=== PATIENT | female | born 1960 | race Caucasian/White ===

== ENCOUNTER → 2023-12-08 12:54 | Outpatient (REF) | payer MEDICARE, SELFPAY | LOC: HWRAD 12:54 | PROVIDERS: ATTENDING PHYSICIAN Family Medicine; REFERRING PHYSICIAN Internal Medicine Endocrinology, Diabetes & Metabolism | DX: E04.1 Nontoxic single thyroid nodule (principal); Z12.31 Encounter for screening mammogram for malignant neoplasm of breast | CPT/HCPCS: 76536; 77063; 77067 ==

== ENCOUNTER → 2024-05-04 11:30 | Outpatient (REF) | payer MEDICARE, SELFPAY | LOC: HWRAD 11:30 | PROVIDERS: ATTENDING PHYSICIAN Internal Medicine Critical Care Medicine; FAMILY PHYSICIAN Family Medicine | DX: R06.09 Other forms of dyspnea (principal) | CPT/HCPCS: 71046 ==

== ENCOUNTER 2024-11-13 05:10 | Emergency (ER) | payer MEDICARE, SELFPAY ==
[2024-11-13] VITALS (11 sets, daily range): BP systolic 123–163; BP diastolic 67–126; BMI 54.5
[2024-11-13 06:13] LABS: Hematocrit 44.9 % (37.0-47.0); Hemoglobin 15.3 g/dL (12.0-16.0); Mean Corp Hgb Conc. 34.1 g/dL (33.0-37.0); Mean Corpuscular Volume 84.9 fL (81.0-99.0); Nucleated Red Blood Cells % 0 %; Platelet Count 273 10^3/uL (130-400); Red Cell Dist. Width 13.8 % (11.5-14.5)
[2024-11-13 06:25] LABS: AST (SGOT) 21 U/L (14-36); Albumin 4.3 g/dl (3.5-5.0); Alkaline Phosphatase 98 U/L (38-126); Blood Urea Nitrogen 10 mg/dl (7-17); Calcium 9.5 mg/dl (8.4-10.2); Carbon Dioxide 23 mmol/L (22-30); Chloride 106 mmol/L (98-107); Estimated Creatinine Clearance 106 ml/min; Glucose 134 mg/dl (70-99); Potassium 4.0 mmol/L (3.5-5.1); Sodium 138 mmol/L (135-145); Total Protein 7.6 g/dl (6.3-8.2); eGFR > 60.00
[2024-11-13 06:39] LABS: ALT (SGPT) < 30 U/L (0-35)
[2024-11-13] MEDS: NSS 1000 IV (06:48)
[2024-11-13] MEDS: TORADOL 30 MG IV (06:48)
[2024-11-13 10:42] LABS: Urine Character Slightly Cloudy (Clear)
[2024-11-13 10:52] LABS: Urine Squamous Cell >30 /LPF (Few)
[2024-11-13] MEDS: MONUROL 3 GM PO (12:49)
[2024-11-13] MEDS: TYLENOL 1000 MG PO (13:11)
--- NOTE | 2024-11-13 13:25 | ED.GENMED ---
History of Present Illness
General
Chief Complaint: Abdominal Symptoms
Source: patient
Time Seen by Provider: 11/13/24 06:08
History of Present Illness
History of Present Illness:
Note:
CHIEF COMPLAINT(S)
Severe headache and neck stiffness following pneumococcal vaccination.
HISTORY OF PRESENT ILLNESS
The patient is a 64-year-old female with a history of hypertension, hyperlipidemia, restless leg syndrome, and chronic pain requiring methadone for severe osteoarthritis and prior back injury. She presented with severe headache and neck stiffness
following a pneumococcal vaccine administered on Friday. The symptoms began on , with the headache progressively worsening and leading to awakening three times during the night due to its intensity. The headache is described as bilateral
temporal, severe, feeling like 'something was going through my head coming out the other side.' She also reports neck stiffness persisting from yesterday and diarrhea occurring early on the morning of the visit. She suspects these may be related to
the recent vaccination. There have been no fevers noted, and she feels no abdominal tenderness currently, though she experienced cramping earlier. No significant fever or focal neurological deficits are present, and the patient is scheduled for a
thyroid biopsy on the upcoming Friday.
CHRONIC MEDICAL CONDITIONS SIGNIFICANTLY AFFECTING CARE
- Hypertension
- Hyperlipidemia
- Restless leg syndrome
- Chronic pain with methadone management due to osteoarthritis and past back injury
PAST MEDICAL HISTORY
- Hypertension
- Hyperlipidemia
- Restless leg syndrome
- Endometriosis
- Prior negative left breast biopsy
PAST SURGICAL HISTORY
- Left breast biopsy
SOCIAL HISTORY
The patient is on methadone for chronic pain management related to severe osteoarthritis and a past back injury.
MEDICATIONS
Methadone for chronic pain management.
REVIEW OF SYSTEMS
- Neurological: Severe bilateral temporal headache, neck stiffness.
- Gastrointestinal: Diarrhea, prior cramping.
- Constitutional: No fever noted.
PHYSICAL EXAM
- General: Alert and oriented, no acute distress.
- Skin: Warm, dry, well-perfused.
- HEENT
Cranial nerves intact, oral mucosa moist.
- Cardiovascular: Regular rhythm, no murmurs, good peripheral perfusion.
- Respiratory: Clear auscultation, non-labored respirations.
- Gastrointestinal: Abdomen soft, non-distended, non-tender.
- Neurological: No focal motor deficits, speech normal, cranial nerves intact.
- Musculoskeletal: No edema.
PROBLEM LIST
- Acute: Severe headache, neck stiffness, and diarrhea post-vaccination.
- Chronic: Hypertension, hyperlipidemia, restless leg syndrome, chronic pain.
PLAN
- Administer intravenous fluids and medication for headache relief.
- Monitor symptom progression and reassess if conditions worsen or new symptoms such as fever develop.
- Consider possible viral etiology or uncommon vaccine side effect due to temporal relationship and symptom presentation.
DIFFERENTIAL DIAGNOSIS
The Differential Diagnosis includes, in no particular order and is not limited to:
- Adverse reaction to pneumococcal vaccine
- Tension headache
- Migraine
- Viral gastroenteritis
- Cervical muscle strain
- Meningitis (unlikely given lack of fever and normal white count)
- Influenza
- Sinusitis
- Cluster headache
- Giant cell arteritis
CARE-UPDATE
11/13/24 - 10:13
The patient reports feeling overall better, although the neck is still a little sore. Lab results, including electrolytes, kidney function, and liver function, are normal. A urine study is pending to confirm these findings. The patient is expected
to be discharged today, with instructions to stay hydrated and use Tylenol as needed for aches and pains. The condition is suspected to be viral or possibly related to the vaccine, both deemed self-limiting, requiring only supportive care. There is
no evidence of meningitis or any overwhelming infection.
CARE-UPDATE
11/13/24 - 12:23
Suspected UTI confirmed. Patient reevaluated and reports feeling well. Allergies reviewed; patient confirms significant reaction only to lisinopril, with tongue swelling and angioedema. Initiating trial of fosfomycin; plan to reassess effectiveness.
Disposition:
SUMMARY OF ENCOUNTER
The patient, a 64-year-old female, was seen in the emergency department due to a severe headache and neck stiffness, suspected as a reaction to a pneumococcal vaccine. Additionally, she had diarrhea. After reassessment, the patient reported feeling
much better, and appeared well. Based on her urinalysis, the patient was treated with a single dose of fosfomycin for a urinary tract infection. Her symptoms were suspected to be partially vaccine-related. There was no evidence of meningitis, as she
was not febrile and her neck was supple. Her gastrointestinal symptoms had resolved, and she was deemed safe for outpatient discharge.
DISPOSITION
Discharge
ASSESSMENT
Suspected adverse reaction to pneumococcal vaccine and confirmed urinary tract infection.
EMERGENCY TREATMENTS ADMINISTERED
One dose of fosfomycin for urinary tract infection.
REASSESSMENT
The patient was reassessed and reported feeling much better. Her general condition appeared greatly improved.
PLAN
The patient is advised to increase fluid intake to ensure proper hydration and follow up with her primary care provider.
INDEPENDENT REVIEW OF LABS AND INTERPRETATION OF TESTS
My independent review of urinalysis indicated a urinary tract infection, leading to the administration of fosfomycin.
PATIENT EDUCATION AND COUNSELING
The patient was advised that her symptoms might be related to a recent pneumococcal vaccine and educated on the importance of proper hydration.
FOLLOW-UP INSTRUCTIONS
The patient should follow up with her primary care provider.
MEDICATION RECONCILIATION
A dose of fosfomycin was administered for treating a urinary tract infection during the visit.
MEDICAL DECISION MAKING
-Number and Complexity of Problems Addressed:
Chronic conditions affecting care include hypertension, hyperlipidemia, restless leg syndrome, and chronic pain. Differential diagnosis considered included an adverse reaction to the pneumococcal vaccine, tension headache, migraine, viral
gastroenteritis, cervical muscle strain, meningitis (unlikely due to lack of fever and normal white count), influenza, sinusitis, cluster headache, and giant cell arteritis.
-Data:
Category 1:
The patients urinalysis was reviewed, revealing a urinary tract infection.
-Risk:
Prescription medication was prescribed with the administration of fosfomycin.
DIAGNOSIS
Adverse reaction to pneumococcal vaccine, suspected (T88.1)
Urinary tract infection (N39.0)
Past History
Past History
ED Past Medical History: GERD, HTN, Hypercholesterolemia and Other (Prior PE, history of RLS, deficits of face and scalp, anxiety, depression, esophageal blockage, endometriosis, osteoarthritis, diverticulitis chronic back pain)
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
Social History
Tobacco: Former smoker
Alcohol: Occasional
Drug: None
Personal:
Living: alone
Employment: Disabled
Family History
Family History: Hypertension and Early CAD
Phy Exam
Physical Exam
Physical Exam:
.
Course
Orders/Labs/Results
Orders:
Orders
11/13/24 06:00
CMP [Comprehensive Metabolic Panel] Urgent
Complete Blood Count/With Diff Urgent
11/13/24 06:42
0.9% Sodium Chloride 1000 ml [Nss] 1,000 ml IV BOLUS
Ketorolac [Toradol] 30 mg IV NOW STA
11/13/24 10:00
Urinalysis Reflex To Culture Urgent
Date Specimen was Collected: 11/13/24
Time Specimen was Collected: 09:58
Urine Microscopic Reflex Cult Urgent
Urine Culture Urgent
ALAN Source: U
Specimen Description:
Date Specimen was Collected: 11/13/24
Time Specimen was Collected: 09:58
11/13/24 12:21
Fosfomycin [Monurol] 3 gm PO ONCE ONE
11/13/24 13:08
Acetaminophen [Tylenol] 1,000 mg .ROUTE .STK-MED ONE
11/13/24 13:10
Acetaminophen [Tylenol] 1,000 mg PO NOW STA
Abnormal Lab Results
11/13/24 11/13/24
06:00 10:00
Absolute Lymphs (auto) 0.5 L 10^3/uL
(1.2-3.4)
Absolute Monos (auto) 0.7 H 10^3/uL
(0.1-0.6)
Neutrophils % 79.6 H %
(42.2-75.2)
Lymphocytes % 7.9 L %
(20.5-51.1)
Monocytes % 11.6 H %
(1.7-9.3)
Glucose 134 H mg/dl
(70-99)
Ur Occult Blood Reflex 1+ A
(Negative)
Urine Nitrite (Reflex) Positive A
(Negative)
Leukocyte Esterase Rfl 2+ A
(Negative)
Urine RBC 3-6 A /HPF
(0-2)
Urine WBC (Reflex) 11-15 A /HPF
(0-5)
Urine Bacteria (Reflex) Many A
(Negative)
Urine Albumin (Reflex) 1+ A
(Neg - Trace)
11/13/24 06:00
11/13/24 06:00
Vital Signs
Initial and Last Documented VS:
Initial Vital Signs
Temp Pulse Resp BP Pulse Ox
98.4 F 111 20 157/98 97
11/13/24 05:13 11/13/24 05:13 11/13/24 05:13 11/13/24 05:13 11/13/24 05:13
Last Documented Vital Signs
Temp Pulse Resp BP Pulse Ox
98.4 F 65 12 145/77 91
11/13/24 05:13 11/13/24 11:00 11/13/24 11:00 11/13/24 11:00 11/13/24 13:29
*Pulse Oximetry
SaO2: 97
Oxygen Mode of Delivery: Room air
Patient hypoxic: no (Checked by me at bedside)
*Critical Care Note
Total Time (30-74mins, 75-104mins- exclusive of procedures): Not Applicable
ED Attending Note
-
Portions of this chart may have been created with voice recognition software.� Occasional wrong word or��sound alike� substitutions may have occurred due to the inherent limitations of voice recognition software.
Discharge Plan
Departure
Patient Disposition: Home (Routine Discharge)
Date of Disposition: 11/13/24
Time of Disposition: 13:27
Patient with high blood pressure during this ER visit?: Yes
Discharge Problem:
Headache, Diarrhea, Acute UTI
Instructions: Urinary tract infections in adults, Headache in adults - ED discharge instructions, BLOOD PRESSURE
Prescriptions:
No Action
methadone 10 MG tablet
10 mg PO TID
atorvastatin 40 MG tablet
40 mg PO DAILY
amlodipine 5 MG tablet
5 mg PO DAILY
oxycodone 10 MG tablet
10 mg PO BID
Patient Comments:
took half tab this am
polyethylene glycol 3350 17 GRAMS powder in packet
17 grams PO DAILYPRN PRN (Reason: constipation)
ketotifen fumarate [Zaditor] 5 ML drops
1 drp BOTH EYES DAILYPRN PRN (Reason: ALLERGIES)
ropinirole 1 MG tablet
0.5 mg PO HSPRN PRN (Reason: restless leg)
Patient Comments:
0.5MG HS X 2 MORE NIGHTS. THEN 1MG HS X 7 NIGHTS; THEN 2MG X 7 NIGHTS, THEN 3MG X 7 NIGHTS, THEN 4MG THEREAFTER.
Eliquis 5 MG tablet
5 mg PO BID Qty: 60 0RF
cetirizine 10 MG tablet
10 mg PO DAILY
gentamicin 1 DROP drops
1 drp ophthalmic (eye) Q4HWA
ferrous sulfate [Iron (ferrous sulfate)] 325 MG tablet
325 mg PO DAILY
losartan 25 MG tablet
25 mg PO DAILY
Referrals:
Deng Amezquita MD [Family Provider, Family Practice]
Activity Restrictions/Additional Instructions:
Please see your doctor in the next 3 to 5 days for follow-up and reevaluation. Drink plenty of fluids. Return immediately for fevers, worsening symptoms, shortness of breath or any other concerns.
Interventions
Interventions:
*Risk Screen - Suicide Last Done: 11/13/24 05:13
*General Assessment Last Done: 11/13/24 05:49
*Neglect/Abuse Screening Last Done: 11/13/24 05:53
*ED- Fall Risk Assessment Last Done: 11/13/24 05:13
*ED COVID-19 Vaccine History Last Done: 11/13/24 05:49
AY-Gngbxx-Whiojqbdju Assessment Last Done: 11/13/24 05:50
Discharge Date and Time
Print Language: LAO
== END 2024-11-13 14:54 | disposition home or self-care (01) ==
LOC: EMR 05:10
PROVIDERS: Emergency Medicine; EMERGENCY PHYSICIAN Emergency Medicine; FAMILY PHYSICIAN Family Medicine
DX: R19.7 Diarrhea, unspecified (principal); R51.9 Headache, unspecified; N39.0 Urinary tract infection, site not specified; M43.6 Torticollis; I10 Essential (primary) hypertension; M19.90 Unspecified osteoarthritis, unspecified site; G25.81 Restless legs syndrome; E78.00 Pure hypercholesterolemia, unspecified; K21.9 Gastro-esophageal reflux disease without esophagitis; G89.29 Other chronic pain; F41.9 Anxiety disorder, unspecified; F32.A Depression, unspecified; K57.92 Diverticulitis of intestine, part unspecified, without perforation or abscess without bleeding; Z79.891 Long term (current) use of opiate analgesic; Z79.01 Long term (current) use of anticoagulants; Z86.711 Personal history of pulmonary embolism; Z87.891 Personal history of nicotine dependence; Z88.1 Allergy status to other antibiotic agents; Z88.2 Allergy status to sulfonamides; Z88.8 Allergy status to other drugs, medicaments and biological substances; Z91.048 Other nonmedicinal substance allergy status
CPT/HCPCS: 99284; 96374; 96361; 80053; 81003; 81015; 85025; 87086

== ENCOUNTER 2025-01-21 17:30 | Emergency (ER) | payer MEDICARE, SELFPAY ==
[2025-01-21 17:32] VITALS: BP 150/68
[2025-01-21 17:56] LABS: Hematocrit 45.5 % (37.0-47.0); Hemoglobin 14.9 g/dL (12.0-16.0); Mean Corp Hgb Conc. 32.7 g/dL (33.0-37.0); Mean Corpuscular Volume 88.5 fL (81.0-99.0); Nucleated Red Blood Cells % 0 %; Platelet Count 309 10^3/uL (130-400); Red Cell Dist. Width 13.7 % (11.5-14.5)
[2025-01-21 18:24] LABS: ALT (SGPT) 16 U/L (0-35); AST (SGOT) 19 U/L (14-36); Albumin 4.3 g/dl (3.5-5.0); Alkaline Phosphatase 104 U/L (38-126); Blood Urea Nitrogen 13 mg/dl (7-17); Calcium 10.3 mg/dl (8.4-10.2); Carbon Dioxide 29 mmol/L (22-30); Chloride 102 mmol/L (98-107); Glucose 127 mg/dl (70-99); Lipase 79 U/L (23-300); Potassium 4.2 mmol/L (3.5-5.1); Sodium 139 mmol/L (135-145); Total Protein 7.4 g/dl (6.3-8.2); eGFR > 60.00
[2025-01-21 19:11] VITALS: BP 134/73
[2025-01-21 19:19] LABS: Urine Character Cloudy (Clear)
[2025-01-21 19:32] LABS: Urine Red Blood Cell 16-20 /HPF (0-2); Urine Squamous Cell 0-2 /LPF (Few); Urine White Cell 21-25 /HPF (0-5)
[2025-01-21 21:34] VITALS: BP 121/66
[2025-01-21 22:00] VITALS: BP 115/62
--- NOTE | 2025-01-21 22:15 | ED.GENMED ---
Addendum entered and electronically signed by Alfonso Topete Jr., PA-C 01/24/25 09:13:
The patient was contacted and will be started on antibiotics. She does have a listed allergy to Keflex but claims this only caused a slight stomachache and did not cause any symptoms consistent with significant allergic reaction. She was advised
to take the medication with something in her stomach to help with the side effect.
Original Note:
History of Present Illness
General
Chief Complaint: Abdominal Pain
Source: patient
Time Seen by Provider: 01/21/25 19:03
History of Present Illness
History of Present Illness:
Note:
CHIEF COMPLAINT(S)
Severe lower abdominal pain and vomiting.
HISTORY OF PRESENT ILLNESS
The patient is a 64-year-old female who presents with severe pain located in the lower abdomen near the groin and vomiting. The symptoms began suddenly approximately two hours before arrival to the emergency department and since resolved. The
patient reports that upon lying down after returning home, she experienced a stabbing pain followed by nausea and uncontrollable vomiting. The patient specifically notes, 'As soon as I laid down, I got this stabbing pain,' which lasted until the
ambulance arrived. The pain has resolved upon arrival to the hospital. A similar episode occurred one to two months ago, lasting approximately six to seven hours, but without vomiting. The patient has never had kidney stones before but suspects that
might be the cause of her symptoms. The pain did radiate towards her back. The patient did not drive herself due to the severity of the pain. The patient mentions not taking methadone, which she usually uses for back pain, earlier today due to a flu
shot and a urine test.
PAST MEDICAL AND SURGICAL HISTORY
The patient has a history of heavy lifting injury at work, resulting in a herniated disk and persistent back pain. She experiences numbness and weakness in the right hand, believed to be related to cervical spine issues; the pain management doctor
is planning a CT scan of the neck.
SOCIAL DETERMINANTS AFFECTING HEALTH
The patient describes functional limitations due to chronic pain, affecting mobility and daily activities.
MEDICATIONS
- Methadone (dosage not specified), typically used for managing chronic pain.
REVIEW OF SYSTEMS
- Gastrointestinal: Severe pain in the lower abdominal region, nausea, and vomiting.
- Musculoskeletal: Persistent back pain from a past injury, related numbness and weakness in the right hand.
- Neurological: Episodes of right hand numbness and weakness.
PHYSICAL EXAM
General: Alert, no acute distress.
Skin: Warm, dry.
Head: Normocephalic, atraumatic.
Neck: Supple, trachea midline.
Eye, Ears, Nose, Mouth, and Throat: Oral mucosa moist.
Cardiovascular: Normal peripheral perfusion, No edema.
Respiratory: Respirations are non-labored.
Gastrointestinal: Abdomen non-distended, normal bowel sounds; No tenderness noted.
Back: Normal range of motion, Normal alignment.
Musculoskeletal: Normal range of motion, normal strength.
Neurological: Alert and oriented to person, place, time, and situation; No focal neurological deficit observed.
Psychiatric: Cooperative, appropriate mood & affect.
PROBLEM LIST
- Acute: Lower abdominal pain, unexplained vomiting.
- Chronic: Back pain due to herniated disk, cervical spine-related hand numbness and weakness.
PLAN
- Obtain abdominal imaging to evaluate for kidney stones or other abnormalities.
- Conduct urine analysis.
- Review previous imaging if available.
DIFFERENTIAL DIAGNOSIS
The Differential Diagnosis includes, in no particular order and is not limited to:
1. Kidney stones
2. Urinary tract infection
3. Gastroenteritis
4. Ovarian pathology (e.g., cyst, torsion)
5. Diverticulitis
6. Appendicitis
7. Biliary colic
8. Pancreatitis
9. Abdominal aortic aneurysm
10. Mesenteric ischemia
Disposition:
SUMMARY OF ENCOUNTER
The patient is a 64-year-old female who presented to the emergency department with a recent history of left-sided lower abdominal, groin, and lower pelvic pain that had resolved upon evaluation. She described the pain as acute in onset and subsiding
abruptly. While she had been previously treated with antibiotics by both her primary care doctor and me for a suspected urinary tract infection, she currently has no urinary symptoms. I decided to hold off on additional antibiotics pending the
results of a urine culture due to her asymptomatic status and a history of a nitrate-positive urine with a negative culture. A CT scan showed no evidence of pyelonephritis or obstructive uropathy, but indicated rectal stool, leaving open the
possibility that her symptoms could have been related to rectal spasm.
PLAN
Recommended the patient follow up closely with her outpatient provider. I advised the use of laxatives and possibly enemas to address potential rectal spasm or related issues.
INDEPENDENT REVIEW OF LABS AND INTERPRETATION OF TESTS
My independent interpretation of the CT shows no evidence of pyelonephritis or obstructive uropathy but does show rectal stool.
FOLLOW-UP INSTRUCTIONS
Recommended the patient have a close outpatient follow-up and consider using laxatives and possibly enemas.
MEDICAL DECISION MAKING
-Complexity of Data Reviewed: Chronic conditions affecting care [herniated disk with chronic back pain, cervical spine-related hand numbness] Differential Diagnosis list includes: Kidney stones, Urinary tract infection, Gastroenteritis, Ovarian
pathology (e.g., cyst, torsion), Diverticulitis, Appendicitis, Biliary colic, Pancreatitis, Abdominal aortic aneurysm, Mesenteric ischemia.
-Data:
Category 1
The patients outpatient pharmacy records and prior external note reviewed, noting previous treatments with antibiotics.
Category 2
My independent interpretation of the CT scan indicates no pyelonephritis or obstructive uropathy but shows rectal stool.
-Risk: Prescription medication was considered, namely additional antibiotics, but ultimately not given after discussion with the patient due to current asymptomatic status.
DIAGNOSIS
Abdominal pain, unspecified (R10.9)
Past History
Past History
ED Past Medical History: GERD, HTN, Hypercholesterolemia and Other (Prior PE, history of RLS, deficits of face and scalp, anxiety, depression, esophageal blockage, endometriosis, osteoarthritis, diverticulitis chronic back pain)
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
Social History
Tobacco: Former smoker
Alcohol: Occasional
Drug: None
Personal:
Living: alone
Employment: Disabled
Family History
Family History: Hypertension and Early CAD
Phy Exam
Physical Exam
Physical Exam:
.
Course
Orders/Labs/Results
Orders:
Orders
01/21/25 17:38
Complete Blood Count/With Diff Urgent
Comprehensive Metabolic Panel Urgent
Lipase Urgent
01/21/25 19:13
Urinalysis Reflex To Culture Urgent
Date Specimen was Collected: 01/21/25
Time Specimen was Collected: 19:12
Urine Microscopic Reflex Cult Urgent
Urine Culture Urgent
ALAN Source: U
Specimen Description:
Date Specimen was Collected: 01/21/25
Time Specimen was Collected: 19:12
01/21/25 19:41
CT Abd/pel Without Iv Or Oral Urgent
Comment:
Reason For Exam: sudden onset L sided pain/groin pain
Abnormal Lab Results
01/21/25 01/21/25
17:38 19:13
WBC 14.3 H 10^3/uL
(4.8-10.8)
MCHC 32.7 L g/dL
(33.0-37.0)
Abs Immat Gran (auto) 0.1 H 10^3/uL
(0-0.05)
Absolute Neuts (auto) 12.0 H 10^3/uL
(1.4-6.5)
Absolute Lymphs (auto) 1.1 L 10^3/uL
(1.2-3.4)
Absolute Monos (auto) 1.0 H 10^3/uL
(0.1-0.6)
Neutrophils % 83.8 H %
(42.2-75.2)
Lymphocytes % 7.9 L %
(20.5-51.1)
Glucose 127 H mg/dl
(70-99)
Calcium 10.3 H mg/dl
(8.4-10.2)
Ur Occult Blood Reflex 4+ A
(Negative)
Urine Nitrite (Reflex) Positive A
(Negative)
Leukocyte Esterase Rfl 2+ A
(Negative)
Urine RBC 16-20 A /HPF
(0-2)
Urine WBC (Reflex) 21-25 A /HPF
(0-5)
Urine Bacteria (Reflex) Many A
(Negative)
Urine Albumin (Reflex) 1+ A
(Neg - Trace)
01/21/25 17:38
01/21/25 17:38
Vital Signs
Initial and Last Documented VS:
Initial Vital Signs
Temp Pulse Resp BP Pulse Ox
98.5 F 81 18 150/68 100
01/21/25 17:32 01/21/25 17:32 01/21/25 17:32 01/21/25 17:32 01/21/25 17:32
Last Documented Vital Signs
Temp Pulse Resp BP Pulse Ox
98.5 F 85 11 115/62 100
01/21/25 17:32 01/21/25 19:45 01/21/25 19:45 01/21/25 22:00 01/21/25 22:27
*Pulse Oximetry
SaO2: 100
Oxygen Mode of Delivery: Room air
Patient hypoxic: no
*Critical Care Note
Total Time (30-74mins, 75-104mins- exclusive of procedures): Not Applicable
ED Attending Note
-
Portions of this chart may have been created with voice recognition software.� Occasional wrong word or��sound alike� substitutions may have occurred due to the inherent limitations of voice recognition software.
Discharge Plan
Departure
Patient Disposition: Home (Routine Discharge)
Date of Disposition: 01/21/25
Time of Disposition: 22:25
Patient with high blood pressure during this ER visit?: No
Discharge Problem:
Abdominal pain
Instructions: Abdominal Pain
Prescriptions:
No Action
methadone 10 MG tablet
10 mg PO TID
atorvastatin 40 MG tablet
40 mg PO DAILY
amlodipine 5 MG tablet
5 mg PO DAILY
oxycodone 10 MG tablet
10 mg PO BID
Patient Comments:
took half tab this am
polyethylene glycol 3350 17 GRAMS powder in packet
17 grams PO DAILYPRN PRN (Reason: constipation)
ketotifen fumarate [Zaditor] 5 ML drops
1 drp BOTH EYES DAILYPRN PRN (Reason: ALLERGIES)
ropinirole 1 MG tablet
0.5 mg PO HSPRN PRN (Reason: restless leg)
Patient Comments:
0.5MG HS X 2 MORE NIGHTS. THEN 1MG HS X 7 NIGHTS; THEN 2MG X 7 NIGHTS, THEN 3MG X 7 NIGHTS, THEN 4MG THEREAFTER.
Eliquis 5 MG tablet
5 mg PO BID Qty: 60 0RF
cetirizine 10 MG tablet
10 mg PO DAILY
gentamicin 1 DROP drops
1 drp ophthalmic (eye) Q4HWA
ferrous sulfate [Iron (ferrous sulfate)] 325 MG tablet
325 mg PO DAILY
losartan 25 MG tablet
25 mg PO DAILY
Referrals:
Deng Amezquita MD [Family Provider, Family Practice]
Activity Restrictions/Additional Instructions:
Please see your doctor in the next 2-5 days for followup and re-evaluation.
Return immediately for fevers, vomiting, worsening pain or any other concerns. Your urine culture is pending. We are going to hold off on antibiotics pending the results of the culture.
Interventions
Interventions:
*Risk Screen - Suicide Last Done: 01/21/25 17:32
*General Assessment Last Done: 01/21/25 19:14
*Neglect/Abuse Screening Last Done: 01/21/25 17:32
*ED- Fall Risk Assessment Last Done: 01/21/25 19:14
*ED COVID-19 Vaccine History Last Done: 01/21/25 17:32
*Nursing Disposition Last Done: 01/21/25 22:29
KE-Zoeldz-Aljlqpfjby Assessment Last Done: 01/21/25 18:47
Discharge Date and Time
Discharge Date/Time: 01/21/25 22:30
Print Language: LITHUANIAN
== END 2025-01-21 22:30 | disposition home or self-care (01) ==
LOC: EMR 17:30
PROVIDERS: Student in an Organized Health Care Education/Training Program; EMERGENCY PHYSICIAN Emergency Medicine; FAMILY PHYSICIAN Family Medicine
DX: R10.32 Left lower quadrant pain (principal); R11.2 Nausea with vomiting, unspecified; E78.00 Pure hypercholesterolemia, unspecified; G25.81 Restless legs syndrome; I10 Essential (primary) hypertension; M19.90 Unspecified osteoarthritis, unspecified site; Z82.49 Family history of ischemic heart disease and other diseases of the circulatory system; Z86.711 Personal history of pulmonary embolism; Z87.891 Personal history of nicotine dependence
CPT/HCPCS: 99284; 74176; 80053; 81003; 81015; 83690; 85025; 87077; 87086; 87186